=== PATIENT | female | born 1970 | race Asian ===

== ENCOUNTER 2022-06-29 10:40 | Outpatient (CLI) | payer BC | END 2022-06-29 10:41 | disposition critical access hospital (66) | LOC: EMS 10:40 | DX: M54.31 Sciatica, right side (principal) | CPT/HCPCS: A0425; A0429 ==

== ENCOUNTER 2022-06-29 11:06 | Emergency (ER) | payer BC ==
[2022-06-29] MEDS ORDERED: KETOROLAC 60 MG/2 ML VIAL IM STA (11:25)
[2022-06-29] MEDS ORDERED: HYDROmorphone 1 MG/ML CARPUJECT IM STA ×2 (11:25→12:38)
[2022-06-29] MEDS ORDERED: TRIAMCINOLONE 40 MG/ML VIAL IM STA (11:25)
--- NOTE | 2022-06-29 11:28 | ED Physician Documentation ---
History of Present Illness - Stated complaint Stated Complaint: R LEG PX - Chief complaint Chief Complaint: Ext Problem - History obtained from History obtained from: Patient - Additonal information Additional information: 52-year-old woman, otherwise healthy with history of a lumbar disc herniation, she does not know what level. Over the last few days she has had increasing pain in the right low back radiating through the right buttock to the popliteal fossa and down towards the posterior heel with intermittent numbness in that same distribution. She tried Tylenol without relief. It is not associated with saddle anesthesia, incontinence, or fevers. 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 : None HEENT: None Psych: None Musculoskeletal: Chronic back pain Derm: None - Past Surgical History Past Surgical History: No - Present Medications Home Medications: Ambulatory Orders Medication Instructions Recorded Confirmed Atorvastatin [Lipitor] 0 mg ORAL DAILY 06/29/22 06/29/22 Oxycodone HCl/Acetaminophen 1 - 2 each PO Q6H PRN #14 tablet 06/29/22 [Percocet 5-325 mg Tablet] PARoxetine [Paxil] 10 mg PO DAILY 06/29/22 06/29/22 Spironolactone [Aldactone] 0 mg PO DAILY 06/29/22 06/29/22 amLODIPine [Norvasc] 0 mg PO DAILY 06/29/22 06/29/22 metFORMIN [Glucophage] 500 mg PO DAILY PM 06/29/22 06/29/22 predniSONE [Deltasone] 20 mg PO [id number] #21 tab 06/29/22 - Allergies Allergies/Adverse Reactions: Allergies Allergy/AdvReac Type Severity Reaction Status Date / Time No Known Drug Allergies Allergy Verified 06/29/22 11:15 - Social History Does the pt smoke?: No Smoking Status: Never smoker Does the pt drink ETOH?: No Does the pt have substance abuse?: No - Immunizations Immunizations are current?: Yes PD ED PE NORMAL - Vitals Vital signs reviewed: Yes - General General: Alert and oriented X 3, Other (She is laying with the left leg flexed which she says is more comfortable for her. No distress at rest.) - Back Back: No spinal TTP, Other (No midline spinal tenderness. She is tender in the right sciatic notch) - Extremities Extremities: Other (The patient has equal and normal Achilles and patellar reflexes bilaterally. Normal sensation in all areas of the legs. Patient denies saddle anesthesia. Normal strength in flexion-extension at the ankles, knees, and flexion of the hips.) - Neuro Neuro: Alert and oriented X 3, Normal speech Results - Vitals Vitals: Vital Signs - 24 hr 06/29/22 06/29/22 06/29/22 11:15 11:41 12:35 Temperature 37.2 C Heart Rate 67 73 83 Respiratory 16 16 16 Rate Blood Pressure 146/78 H 119/67 121/66 O2 Saturation 98 97 99 06/29/22 06/29/22 13:34 13:57 Temperature 36.5 C Heart Rate 74 80 Respiratory 16 16 Rate Blood Pressure 127/90 H 127/90 H O2 Saturation 97 98 Oxygen O2 Source Room air Procedures - General procedure General procedure: Trigger point injection was done into the area of maximal tenderness into the right buttock with a combination of 9 mL of 0.5% bupivacaine and 1 mL of 40 mg of Kenalog. PD MEDICAL DECISION MAKING - ED course ED course: This patient has seemingly uncomplicated musculoskeletal back pain. The patient has no "red flags." Specifically denies IV drug use, fevers, incontinence, saddle anesthesia. Spinal epidural abscess was considered, given that the patient has no fever, is not diabetic, has no spinal tenderness, does not use IV drugs, and has no bilateral neurologic symptoms, the diagnosis of spinal epidural abscess is considered exceedingly unlikely. She was treated initially with 60 mg of IM Toradol and 1 mg of IM Dilaudid without much relief, subsequently got 2 mg of IM Dilaudid in the trigger point injection with significant improvement in her pain. She was ambulatory here without issue. Departure - Departure Disposition: 01 Home, Self Care Clinical Impression: Sciatica Condition: Good Record reviewed to determine appropriate education?: Yes Instructions: ED Sciatica Prescriptions: predniSONE [Deltasone] 20 mg PO [id number] #21 tab Oxycodone HCl/Acetaminophen [Percocet 5-325 mg Tablet] 1 - 2 each PO Q6H PRN #14 tablet PRN Reason: pain Comments: I sent your prescriptions electronically to [email or web address] in [place]. Follow-up with your primary care physician, for recheck, and consideration for referral for physical therapy. Return for new or worsening symptoms. I am prescribing a short course of narcotic pain medication for you. These are potentially dangerous and addictive medications that should be used carefully. These medications may constipate you. Take an [id number] stool softener (docusate) twice daily with plenty of water while taking these medications. If you go 24 hours without a bowel movement, take [id number] miralax, per package instructions. Do not drink or drive while taking these medications. If you received narcotic or sedating medications while in the emergency department, do not drive for 24 hours. Store this medication in a safe, secure place and out of reach of children. It is a violation of federal law to give or sell this medication to another person or to use in a manner other than prescribed. The ED will not refill narcotic prescriptions, including prescriptions lost or stolen. To dispose of unwanted medications: 1. [facility] at [address] [place] [address] in [place] has a medication drop box. They accept prescription medications (in pill form) Thursday through Thursday 9:00 a.m. to 5:00 p.m. 2. [facility] accepts prescription medications (in pill form only) for disposal year round. Call for more information. 3. Contact the [facility] for the next [facility] sponsored prescription drug collection event. , [phone], or [phone]; Note that many narcotic pain relievers also contain Tylenol/acetaminophen. Please ensure that your total dose of acetaminophen from all sources does not exceed 3 g (3000 mg) per day. Discharge Date/Time: 06/29/22 14:56
[2022-06-29 13:34] VITALS: BP 127/90
== END 2022-06-29 14:56 | disposition home or self-care (01) ==
LOC: ED 11:06
DX: M54.40 Lumbago with sciatica, unspecified side (principal); I10 Essential (primary) hypertension
CPT/HCPCS: 20552; 96372; 99283; J1170